=== PATIENT | female | born 1985 | race Caucasian/White ===

== ENCOUNTER → 2016-10-05 | Outpatient (CLI) | payer OTHER ==
[2016-10-05 10:18] LABS: BASO % 0.2 % (0.0-1.0); EOS % 0.7 % (0.0-3.0); LARGE UNSTAINED CELL # 0.1 K/mm3 (0.0-0.4); LARGE UNSTAINED CELL % 1.9 % (0.0-4.0); LYMPH # 0.9 K/mm3 (1.5-4.5); LYMPH % 10.4 % (24.0-44.0); MEAN CORPUSCULAR HEMOGLOBIN 30.1 pg (27.0-33.0); MEAN CORPUSCULAR HGB CONC 32.9 g/dl (32.0-36.5); MEAN CORPUSCULAR VOLUME 91.4 fl (80.0-96.0); MONO # 0.4 K/mm3 (0.0-0.8); MONO % 5.8 % (0.0-5.0); NEUTROPHILS # 5.8 K/mm3 (1.8-7.7); NEUTROPHILS % 81.1 % (36.0-66.0); PLATELET COUNT, AUTOMATED 217 k/mm3 (150-450); RED CELL DISTRIBUTION WIDTH 12.3 % (11.5-14.5); WHITE BLOOD COUNT 7.1 K/mm3 (4.0-10.0)
[2016-10-05 10:41] LABS: CONTROL LINE MONO INT CTR LINE PRESENT
[2016-10-05 10:52] LABS: ALBUMIN 3.8 GM/DL (3.2-5.2); ALBUMIN/GLOBULIN RATIO 1.23 (1.00-1.93); ALKALINE PHOSPHATASE 30 U/L (45-117); ALT/SGPT 32 U/L (12-78); ANION GAP 10 MEQ/L (8-16); AST/SGOT 17 U/L (15-37); BILIRUBIN,TOTAL 0.4 MG/DL (0.2-1.0); BLOOD UREA NITROGEN 14 MG/DL (7-18); CALCIUM LEVEL 9.1 MG/DL (8.5-10.1); CARBON DIOXIDE LEVEL 26 MEQ/L (21-32); CHLORIDE LEVEL 106 MEQ/L (98-107); CREATININE FOR GFR 0.61 MG/DL (0.55-1.02); GLOMERULAR FILTRATION RATE > 60.0 (>60); GLUCOSE, FASTING 89 MG/DL (70-105); POTASSIUM SERUM 3.6 MEQ/L (3.5-5.1); SODIUM LEVEL 142 MEQ/L (136-145); TOTAL PROTEIN 6.9 GM/DL (6.4-8.2)
== END ==
LOC: M LAB 09:51
PROVIDERS: ATTEND Family Medicine
DX: B27.90 Infectious mononucleosis, unspecified without complication (principal); J02.9 Acute pharyngitis, unspecified

== ENCOUNTER → 2018-07-20 | Outpatient (REF) | payer OTHER | LOC: M LAB REF 17:27 | DX: J06.9 Acute upper respiratory infection, unspecified (principal) | CPT/HCPCS: 87081 ==

== ENCOUNTER → 2019-06-08 | Outpatient (REF) | payer OTHER | LOC: M LAB REF 10:56 | PROVIDERS: ATTEND Physician Assistant | DX: R30.0 Dysuria (principal) ==

== ENCOUNTER → 2019-06-18 | Outpatient (REF) | payer OTHER | LOC: M LAB REF 17:16 | PROVIDERS: ATTEND Physician Assistant | DX: N39.0 Urinary tract infection, site not specified (principal) ==

== ENCOUNTER → 2019-07-06 | Outpatient (REF) | payer OTHER | LOC: M LAB REF 10:50 | PROVIDERS: ATTEND Physician Assistant | DX: R30.0 Dysuria (principal) ==

== ENCOUNTER → 2019-07-08 | Outpatient (REF) | payer OTHER ==
[2019-07-08 18:44] LABS: APPEARANCE, URINE CLEAR (CLEAR); BACTERIA, URINE AUTO NEGATIVE (NEGATIVE); BILIRUBIN, URINE AUTO NEGATIVE (NEGATIVE); BLOOD, URINE BLOOD NEGATIVE (NEGATIVE); CALCIUM OXALATE CRYSTALS SMALL; COLOR, URINE YELLOW (YELLOW); GLUCOSE, URINE (UA) AUTO NEGATIVE (NEGATIVE); KETONE, URINE AUTO NEGATIVE (NEGATIVE); LEUKOCYTE ESTERASE, URINE AUTO NEGATIVE (NEGATIVE); MUCUS, URINE SMALL (NEGATIVE); NITRITE, URINE AUTO NEGATIVE (NEGATIVE); PROTEIN, URINE AUTO NEGATIVE (NEGATIVE); RBC, URINE AUTO 0 /HPF (0-3); SPECIFIC GRAVITY URINE AUTO 1.023 (1.002-1.035); SQUAMOUS EPITHELIAL CELL UR AU 1 /HPF (0-6); UROBILINOGEN, URINE AUTO 0.2 mg/dL (0.0-2.0); WBC, URINE AUTO 2 /HPF (0-3)
== END ==
LOC: M LAB REF 16:47
PROVIDERS: ATTEND Family Medicine
DX: R50.9 Fever, unspecified (principal); M54.5 Low back pain

== ENCOUNTER → 2019-07-17 | Outpatient (CLI) | payer OTHER ==
[2019-07-17 16:18] LABS: BASO % 0.5 % (0.0-1.0); EOS # 0.1 10^3/uL (0.0-0.5); EOS % 1.3 % (0.0-3.0); HEMATOCRIT 40.7 % (36.0-47.0); HEMOGLOBIN 13.1 g/dl (12.0-15.5); LYMPH # 1.3 10^3/uL (1.5-5.0); LYMPH % 20.7 % (24.0-44.0); MEAN CORPUSCULAR HEMOGLOBIN 30.6 pg (27.0-33.0); MEAN CORPUSCULAR HGB CONC 32.2 g/dl (32.0-36.5); MEAN CORPUSCULAR VOLUME 95.1 fl (80.0-96.0); MONO # 0.3 10^3/uL (0.0-0.8); MONO % 5.3 % (0.0-5.0); NEUTROPHILS # 4.5 10^3/uL (1.5-8.5); PLATELET COUNT, AUTOMATED 307 10^3/uL (150-450); RED BLOOD COUNT 4.28 10^6/uL (4.00-5.40); WHITE BLOOD COUNT 6.3 10^3/uL (4.0-10.0)
[2019-07-17 16:26] LABS: ALBUMIN 4.2 GM/DL (3.2-5.2); ALT/SGPT 19 U/L (12-78); BILIRUBIN,TOTAL 0.5 MG/DL (0.2-1.0); BLOOD UREA NITROGEN 9 MG/DL (7-18); CALCIUM LEVEL 9.3 MG/DL (8.5-10.1); CARBON DIOXIDE LEVEL 26 MEQ/L (21-32); CHLORIDE LEVEL 109 MEQ/L (98-107); CREATININE FOR GFR 0.87 MG/DL (0.55-1.30); FREE T4 1.03 NG/DL (0.76-1.46); GLOMERULAR FILTRATION RATE > 60.0 (>60); GLUCOSE, FASTING 74 MG/DL (70-100); POTASSIUM SERUM 3.8 MEQ/L (3.5-5.1); RHEUMATOID FACTOR QUANT < 10.0 IU/ML (<15.0); SODIUM LEVEL 142 MEQ/L (136-145); TOTAL PROTEIN 7.3 GM/DL (6.4-8.2)
== END ==
LOC: M WUC 12:41
DX: M54.5 Low back pain (principal); R53.83 Other fatigue; E55.9 Vitamin D deficiency, unspecified

== ENCOUNTER → 2019-09-23 | Outpatient (CLI) | payer OTHER ==
--- NOTE | 2019-09-24 02:38 | REP ---
Clinical: Cough . Comparison: 03/04/2014 . Technique: PA and lateral. Findings: The mediastinum and cardiac silhouette are normal. The lung goins are clear and without acute consolidation, effusion, or pneumothorax. The skeletal structures are intact and normal. Impression: 1. No acute cardiopulmonary process. Electronically Signed by Rafat Harris MD 09/24/2019 02:29 A
== END ==
LOC: M WUC 11:48
PROVIDERS: ATTEND Nurse Practitioner Family
DX: R05 Cough (principal)

== ENCOUNTER → 2020-07-27 | Outpatient (CLI) | payer OTHER ==
[2020-07-29 14:09] LABS: ANTINUCLEAR ANTIBODIES DIRECT Negative (Negative)
== END ==
LOC: M WUC 15:25
DX: G43.009 Migraine without aura, not intractable, without status migrainosus (principal)

== ENCOUNTER → 2020-09-05 | Outpatient (CLI) | payer SELFPAY | LOC: M LABSMTC 09:01 | PROVIDERS: ATTEND Pediatrics | DX: Z20.822 Contact with and (suspected) exposure to COVID-19 (principal) ==

== ENCOUNTER → 2020-10-17 | Outpatient (CLI) | payer SELFPAY | LOC: M LABSMTC 08:37 | PROVIDERS: ATTEND Pediatrics | DX: Z11.52 Encounter for screening for COVID-19 (principal) ==

== ENCOUNTER → 2021-09-04 | Outpatient (REF) | LOC: M LABSMTC 10:15 | PROVIDERS: ATTEND Pediatrics | DX: Z20.822 Contact with and (suspected) exposure to COVID-19 (principal) ==

== ENCOUNTER → 2021-09-15 | Outpatient (CLI) | payer OTHER ==
[2021-09-15 08:09] LABS: ALBUMIN 3.6 GM/DL (3.2-5.2); ALT/SGPT 24 U/L (12-78); BILIRUBIN,TOTAL 0.2 MG/DL (0.2-1.0); BLOOD UREA NITROGEN 12 MG/DL (7-18); CALCIUM LEVEL 8.7 MG/DL (8.5-10.1); CARBON DIOXIDE LEVEL 27 MEQ/L (21-32); CHLORIDE LEVEL 109 MEQ/L (98-107); CREATININE FOR GFR 0.88 MG/DL (0.55-1.30); GLOMERULAR FILTRATION RATE > 60.0 (>60); GLUCOSE, FASTING 79 MG/DL (70-100); POTASSIUM SERUM 3.8 MEQ/L (3.5-5.1); RHEUMATOID FACTOR QUANT < 10.0 IU/ML (<15.0); SODIUM LEVEL 141 MEQ/L (136-145); TOTAL PROTEIN 6.9 GM/DL (6.4-8.2)
[2021-09-16 13:13] LABS: ANTINUCLEAR ANTIBODIES DIRECT Negative (Negative)
== END ==
LOC: M LAB 06:23
PROVIDERS: ATTEND Family Medicine
DX: M12.9 Arthropathy, unspecified (principal); E55.9 Vitamin D deficiency, unspecified

== ENCOUNTER → 2021-11-25 | Outpatient (REF) | payer OTHER | LOC: M LAB REF 17:18 | PROVIDERS: ATTEND Nurse Practitioner Family | DX: J02.9 Acute pharyngitis, unspecified (principal) ==

== ENCOUNTER → 2022-02-23 | Outpatient (CLI) | payer OTHER ==
[2022-02-23 16:22] LABS: BASO % 0.6 % (0.0-1.0); EOS # 0.1 10^3/uL (0.0-0.5); EOS % 0.9 % (0.0-3.0); HEMOGLOBIN 13.1 g/dl (12.0-15.5); LYMPH # 1.6 10^3/uL (1.5-5.0); LYMPH % 23.9 % (24.0-44.0); MEAN CORPUSCULAR HEMOGLOBIN 29.4 pg (27.0-33.0); MEAN CORPUSCULAR VOLUME 92.1 fl (80.0-96.0); MONO # 0.4 10^3/uL (0.0-0.8); MONO % 6.5 % (2.0-8.0); NEUTROPHILS # 4.5 10^3/uL (1.5-8.5); NEUTROPHILS % 67.8 % (36.0-66.0); PLATELET COUNT, AUTOMATED 292 10^3/uL (150-450); RED BLOOD COUNT 4.45 10^6/uL (4.00-5.40); WHITE BLOOD COUNT 6.6 10^3/uL (4.0-10.0)
[2022-02-23 16:49] LABS: ALBUMIN 3.9 GM/DL (3.2-5.2); ALT/SGPT 24 U/L (12-78); BILIRUBIN,TOTAL 0.3 MG/DL (0.2-1.0); BLOOD UREA NITROGEN 11 MG/DL (7-18); CARBON DIOXIDE LEVEL 24 MEQ/L (21-32); CHLORIDE LEVEL 111 MEQ/L (98-107); COMPLEMENT C3 104 MG/DL (90-180); COMPLEMENT C4 23 MG/DL (10-40); CREATININE FOR GFR 0.86 MG/DL (0.55-1.30); GLOMERULAR FILTRATION RATE > 60.0 (>60); GLUCOSE, FASTING 89 MG/DL (70-100); LDH LACTATE DEHYDROGENASE 172 U/L (84-246); POTASSIUM SERUM 4.1 MEQ/L (3.5-5.1); SODIUM LEVEL 140 MEQ/L (136-145); TOTAL PROTEIN 6.9 GM/DL (6.4-8.2)
[2022-02-23 17:33] LABS: ERYTHROCYTE SEDIMENTATION RATE 5 mm/hr (0-20)
== END ==
LOC: M WUC 14:02
PROVIDERS: ATTEND Internal Medicine Rheumatology
DX: M19.90 Unspecified osteoarthritis, unspecified site (principal); Z79.899 Other long term (current) drug therapy; R21 Rash and other nonspecific skin eruption; I73.00 Raynaud's syndrome without gangrene; M35.00 Sjogren syndrome, unspecified; K13.79 Other lesions of oral mucosa; L65.9 Nonscarring hair loss, unspecified; L56.8 Other specified acute skin changes due to ultraviolet radiation

== ENCOUNTER → 2022-02-23 | Outpatient (REF) | payer OTHER ==
[2022-02-23 13:14] LABS: APPEARANCE, URINE CLEAR (CLEAR); BACTERIA, URINE AUTO NEGATIVE (NEGATIVE); BILIRUBIN, URINE AUTO NEGATIVE (NEGATIVE); BLOOD, URINE BLOOD NEGATIVE (NEGATIVE); COLOR, URINE STRAW (YELLOW); GLUCOSE, URINE (UA) AUTO NEGATIVE (NEGATIVE); KETONE, URINE AUTO NEGATIVE (NEGATIVE); LEUKOCYTE ESTERASE, URINE AUTO NEGATIVE (NEGATIVE); NITRITE, URINE AUTO NEGATIVE (NEGATIVE); PROTEIN, URINE AUTO NEGATIVE (NEGATIVE); RBC, URINE AUTO 0 /HPF (0-3); SPECIFIC GRAVITY URINE AUTO 1.005 (1.002-1.035); SQUAMOUS EPITHELIAL CELL UR AU 0 /HPF (0-6); UROBILINOGEN, URINE AUTO 0.2 mg/dL (0.0-2.0); WBC, URINE AUTO 1 /HPF (0-3)
[2022-02-23 15:49] LABS: CREATININE,RANDOM URINE 28.8 MG/DL; TOTAL PROTEIN,RANDOM URINE < 5.0 MG/DL (0.0-12.0)
== END ==
LOC: M SFHCRHEU 09:16
PROVIDERS: ATTEND Internal Medicine Rheumatology
DX: M19.90 Unspecified osteoarthritis, unspecified site (principal); Z79.899 Other long term (current) drug therapy; R21 Rash and other nonspecific skin eruption; I73.00 Raynaud's syndrome without gangrene; M35.00 Sjogren syndrome, unspecified; K13.79 Other lesions of oral mucosa; L65.9 Nonscarring hair loss, unspecified; L56.8 Other specified acute skin changes due to ultraviolet radiation

== ENCOUNTER → 2022-07-28 | Outpatient (CLI) | payer OTHER ==
[2022-07-28 07:15] LABS: BASO % 0.6 % (0.0-1.0); EOS # 0.1 10^3/uL (0.0-0.5); EOS % 1.2 % (0.0-3.0); HEMATOCRIT 40.1 % (36.0-47.0); HEMOGLOBIN 12.9 g/dl (12.0-15.5); LYMPH # 1.6 10^3/uL (1.5-5.0); LYMPH % 30.3 % (24.0-44.0); MEAN CORPUSCULAR HEMOGLOBIN 29.1 pg (27.0-33.0); MEAN CORPUSCULAR HGB CONC 32.2 g/dl (32.0-36.5); MEAN CORPUSCULAR VOLUME 90.3 fl (80.0-96.0); MONO # 0.4 10^3/uL (0.0-0.8); MONO % 7.6 % (2.0-8.0); NEUTROPHILS # 3.1 10^3/uL (1.5-8.5); NEUTROPHILS % 60.1 % (36.0-66.0); PLATELET COUNT, AUTOMATED 298 10^3/uL (150-450); RED BLOOD COUNT 4.44 10^6/uL (4.00-5.40); WHITE BLOOD COUNT 5.1 10^3/uL (4.0-10.0)
[2022-07-28 07:17] LABS: APPEARANCE, URINE MANUAL CLEAR (CLEAR); COLOR, URINE MANUAL YELLOW (YELLOW)
[2022-07-28 07:18] LABS: BILIRUBIN, URINE MANUAL NEGATIVE (NEGATIVE); BLOOD URINE MANUAL NEGATIVE (NEGATIVE); GLUCOSE, URINE (UA) MANUAL NEGATIVE (NEGATIVE); KETONE, URINE MANUAL NEGATIVE (NEGATIVE); LEUKOCYTE ESTERASE, URINE MAN NEGATIVE (NEGATIVE); NITRITE, URINE MANUAL NEGATIVE (NEGATIVE); PROTEIN, URINE MANUAL NEGATIVE (NEGATIVE); UROBILINOGEN, URINE MANUAL NORMAL (NORMAL)
[2022-07-28 07:33] LABS: TOTAL PROTEIN,RANDOM URINE 8.8 MG/DL (0.0-14.0)
[2022-07-28 07:38] LABS: CREATININE,RANDOM URINE 105.2 MG/DL
[2022-07-28 08:27] LABS: COMPLEMENT C3 117.6 MG/DL (84.0-160.0)
[2022-07-28 08:28] LABS: ALBUMIN 3.8 G/DL (3.2-5.2); ALKALINE PHOSPHATASE 25 U/L (46-116); ALT/SGPT 16 U/L (7.0-40); AST/SGOT 14 U/L (<34); BILIRUBIN,TOTAL 0.4 MG/DL (0.3-1.2); BLOOD UREA NITROGEN 14 MG/DL (9-23); CALCIUM LEVEL 9.1 MG/DL (8.5-10.1); CARBON DIOXIDE LEVEL 23 MMOL/L (20-31); CHLORIDE LEVEL 109 MMOL/L (98-107); CREATININE FOR GFR 0.82 MG/DL (0.55-1.30); GLOMERULAR FILTRATION RATE > 60.0 (>60); GLUCOSE, FASTING 98 MG/DL (60-100); POTASSIUM SERUM 4.2 MMOL/L (3.5-5.1); SODIUM LEVEL 142 MMOL/L (136-145); TOTAL PROTEIN 6.8 G/DL (5.7-8.2)
[2022-07-28 08:51] LABS: ERYTHROCYTE SEDIMENTATION RATE 8 mm/hr (0-20)
== END ==
LOC: M LAB 06:24
PROVIDERS: ATTEND Internal Medicine Rheumatology
DX: M19.90 Unspecified osteoarthritis, unspecified site (principal); Z79.899 Other long term (current) drug therapy; R21 Rash and other nonspecific skin eruption; I73.00 Raynaud's syndrome without gangrene; M35.00 Sjogren syndrome, unspecified; K13.79 Other lesions of oral mucosa; L65.9 Nonscarring hair loss, unspecified; L56.8 Other specified acute skin changes due to ultraviolet radiation

== ENCOUNTER → 2022-10-25 | Outpatient (REF) | payer OTHER | LOC: M SFHCWAGY 10:10 | PROVIDERS: ATTEND Nurse Practitioner Family | DX: Z12.4 Encounter for screening for malignant neoplasm of cervix (principal) | CPT/HCPCS: 87624; G0123 ==

== ENCOUNTER → 2022-12-12 | Outpatient (CLI) | payer OTHER ==
[2022-12-13 12:08] LABS: TISSUE TRANSGLUTAMINASE IgA <2 U/mL (0-3); TISSUE TRANSGLUTAMINASE IgG 4 U/mL (0-5); UNITSIGA FOR GLIADIN IGA 4 units (0-19); UNITSIGG FOR GLIADIN IGG 2 units (0-19)
== END ==
LOC: M LAB 06:05
PROVIDERS: ATTEND Family Medicine
DX: M12.9 Arthropathy, unspecified (principal)

== ENCOUNTER → 2023-01-26 | Outpatient (CLI) | payer OTHER ==
[2023-01-26 07:18] LABS: BASO % 0.8 % (0.0-1.0); EOS # 0.1 10^3/uL (0.0-0.5); EOS % 1.4 % (0.0-3.0); HEMOGLOBIN 13.4 g/dl (12.0-15.5); LYMPH # 1.6 10^3/uL (1.5-5.0); LYMPH % 30.9 % (24.0-44.0); MEAN CORPUSCULAR HEMOGLOBIN 29.1 pg (27.0-33.0); MEAN CORPUSCULAR HGB CONC 32.7 g/dl (32.0-36.5); MEAN CORPUSCULAR VOLUME 89.1 fl (80.0-96.0); MONO # 0.4 10^3/uL (0.0-0.8); MONO % 7.2 % (2.0-8.0); NEUTROPHILS # 3.1 10^3/uL (1.5-8.5); NEUTROPHILS % 59.5 % (36.0-66.0); WHITE BLOOD COUNT 5.1 10^3/uL (4.0-10.0)
[2023-01-26 07:31] LABS: URIC ACID 3.6 MG/DL (3.1-7.8)
[2023-01-26 07:33] LABS: C REACTIVE PROTEIN QUANTITATIV < 0.40 MG/DL (<1.0)
[2023-01-26 07:34] LABS: ALBUMIN 3.8 G/DL (3.2-5.2); ALKALINE PHOSPHATASE 40 U/L (46-116); ALT/SGPT 17 U/L (7.0-40); AST/SGOT 11 U/L (<34); BILIRUBIN,TOTAL 0.2 MG/DL (0.3-1.2); BLOOD UREA NITROGEN 16 MG/DL (9-23); CALCIUM LEVEL 8.6 MG/DL (8.5-10.1); CARBON DIOXIDE LEVEL 25 MMOL/L (20-31); CHLORIDE LEVEL 108 MMOL/L (98-107); CREATININE FOR GFR 0.79 MG/DL (0.55-1.30); GLOMERULAR FILTRATION RATE > 60.0 (>60); GLUCOSE, FASTING 93 MG/DL (60-100); POTASSIUM SERUM 4.5 MMOL/L (3.5-5.1); SODIUM LEVEL 141 MMOL/L (136-145); TOTAL PROTEIN 6.5 G/DL (5.7-8.2)
[2023-01-26 07:35] LABS: RHEUMATOID FACTOR QUANT 5.8 IU/ML (<14)
[2023-01-26 07:36] LABS: TOTAL 25(OH) VITAMIN D 28.1 NG/ML (20.0-100.0)
[2023-01-26 08:42] LABS: ERYTHROCYTE SEDIMENTATION RATE 2 mm/hr (0-20)
[2023-01-27 13:09] LABS: ANTINUCLEAR ANTIBODIES DIRECT Negative (Negative)
== END ==
LOC: M LAB 06:17
PROVIDERS: ATTEND Registered Nurse
DX: R53.83 Other fatigue (principal)

== ENCOUNTER → 2024-09-05 | Outpatient (CLI) | payer OTHER ==
[2024-09-05 07:06] LABS: BASO % 0.4 % (0.0-1.0); EOS # 0.1 10^3/uL (0.0-0.5); EOS % 0.9 % (0.0-3.0); HEMATOCRIT 39.3 % (36.0-47.0); LYMPH # 1.3 10^3/uL (1.5-5.0); LYMPH % 23.4 % (24.0-44.0); MEAN CORPUSCULAR HEMOGLOBIN 29.3 pg (27.0-33.0); MEAN CORPUSCULAR HGB CONC 33.1 g/dl (32.0-36.5); MEAN CORPUSCULAR VOLUME 88.7 fl (80.0-96.0); MONO # 0.5 10^3/uL (0.0-0.8); MONO % 8.3 % (2.0-8.0); NEUTROPHILS # 3.6 10^3/uL (1.5-8.5); NEUTROPHILS % 66.6 % (36.0-66.0); PLATELET COUNT, AUTOMATED 297 10^3/uL (150-450); RED BLOOD COUNT 4.43 10^6/uL (4.00-5.40); WHITE BLOOD COUNT 5.4 10^3/uL (4.0-10.0)
[2024-09-05 08:47] LABS: ALBUMIN 3.7 G/DL (3.2-5.2); ALKALINE PHOSPHATASE 22 U/L (35-104); ALT/SGPT 20 U/L (7.0-40); AST/SGOT 21 U/L (<34); BILIRUBIN,TOTAL 0.9 MG/DL (0.3-1.2); BLOOD UREA NITROGEN 13 MG/DL (9-23); CARBON DIOXIDE LEVEL 25 MMOL/L (20-31); CHLORIDE LEVEL 106 MMOL/L (98-107); CHOLESTEROL LEVEL 133 MG/DL (<200); CHOLESTEROL RISK RATIO 2.14 (<5); CREATININE FOR GFR 0.67 MG/DL (0.55-1.30); GLOMERULAR FILTRATION RATE > 60.0 (>60); GLUCOSE, FASTING 90 MG/DL (60-100); HDL CHOLESTEROL 62.1 MG/DL (>40); LDL CHOLESTEROL 59.1 MG/DL (<100); NON-HDL-C 70.9 MG/DL; POTASSIUM SERUM 4.4 MMOL/L (3.5-5.1); SODIUM LEVEL 142 MMOL/L (136-145); TOTAL PROTEIN 6.9 G/DL (5.7-8.2); TRIGLYCERIDES LEVEL 59 MG/DL (<150)
== END ==
LOC: M LAB 06:27
PROVIDERS: ATTEND Family Medicine
DX: Z00.00 Encounter for general adult medical examination without abnormal findings (principal); R00.2 Palpitations

== ENCOUNTER → 2025-08-18 | Outpatient (CLI) | payer OTHER | LOC: M PLALAB 12:27 | DX: M47.814 Spondylosis without myelopathy or radiculopathy, thoracic region (principal) ==